=== PATIENT | male | born 1950 | race Caucasian/White ===

== ENCOUNTER 2017-06-10 07:01 | Day surgery (SDC) | payer OTHER ==
[~2017-06-10 07:01] MED LIST: ACETAMINOPHEN 1,000 MG/100 ML BTL IV ONE; CEFAZOLIN 2 Gram 2 GM/50 ML BAG IVPB ONE
[2017-06-10] MEDS ORDERED: SEVOFLURANE 250 ML INH ONE (07:02)
[2017-06-10] MEDS ORDERED: DEXAMETHASONE 4 MG/ML 1ML VIAL IVP ONE (07:02)
[2017-06-10] MEDS ORDERED: HYDROCODONE/APAP 7.5/325MG TABLET PO ONE (07:02)
[2017-06-10] MEDS ORDERED: BUPIVACAINE 0.5% W/EPI MPF 30 ML VIAL IVP ONE (07:02)
[2017-06-10] MEDS ORDERED: FENTANYL PF 100MCG/2ML VIAL IV ONE (07:02)
[2017-06-10] MEDS ORDERED: ROPIVACAINE HCL (NAROPIN) /PF 5MG/ML 20ML VIAL IV ONE (07:02)
[2017-06-10] MEDS ORDERED: ENOXAPARIN 40 MG/0.4 ML SYR SQ ONE (07:02)
[2017-06-10] MEDS ORDERED: MORPHINE SULFATE 5 MG/ML PFS IVP ONE (07:02)
[2017-06-10] MEDS ORDERED: LIDOCAINE 2% MDV (20MG/ML) 20ML VIAL IV ONE (07:02)
[2017-06-10] MEDS ORDERED: PROPOFOL 10 MG/ML VIAL IV ONE (07:02)
[2017-06-10] MEDS ORDERED: EPINEPHRINE 1 MG/ML AMPUL SQ ONE (07:02)
[2017-06-10] MEDS ORDERED: EPHEDRINE SULFATE 50 MG/ML ML IV ONE (07:02)
[2017-06-10] MEDS ORDERED: MIDAZOLAM HCL 2MG/2ML VIAL IV ONE (07:02)
[2017-06-10] MEDS ORDERED: MORPHINE SULFATE 4MG/ML PREFILLED SYRINGE IVP ONE (07:02)
[2017-06-10 07:12] LABS: BASO % 0.3 % (0-6); GRAN % 63.2 % (47-80); HEMATOCRIT 43.7 % (42.0-52.0); HEMOGLOBIN 15.1 gm/dl (14.0-18.0); LYMPH % 23.2 % (16-45); MEAN CELL VOLUME 88.3 fl (81-97); MEAN CORPUSCULAR HEMOGLOBIN 30.5 pg (27-33); MEAN CORPUSCULAR HGB CONC 34.6 g/dl (32-36); MEAN PLATELET VOLUME 9.2 fl (7.4-10.4); MONO % 8.3 % (0-9); PLATELET COUNT 290 K/uL (130-400); RED BLOOD COUNT 4.95 M/uL (4.40-5.70); RED CELL DISTRIBUTION WIDTH 13.7 % (11.5-14.5); WHITE BLOOD COUNT W/O DIFF 8.8 K/uL (4.2-12.2)
[2017-06-10 07:25] LABS: BLOOD UREA NITROGEN 20 mg/dL (8-23); CREATININE 1.1 mg/dL (0.7-1.2); EST GLOMERULAR FILTRATION RATE > 60 mL/min; GLUCOSE,RANDOM 106 mg/dL (74-109)
--- NOTE | 2017-06-11 05:35 | Operative Note ---
DATE: 06/10/2017. PREOPERATIVE DIAGNOSIS: TEAR OF THE ROTATOR CUFF ON THE LEFT. POSTOPERATIVE DIAGNOSES: 1. 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 2. SUPERIOR AND ANTERIOR GLENOHUMERAL LABRAL TEAR WITH SEVERE SHOULDER SYNOVITIS. 3. PROFOUND LEFT SHOULDER EXTERNAL IMPINGEMENT. 4. ADVANCED ARTHROSIS, LEFT DISTAL CLAVICLE. PROCEDURES: 1. OPEN REPAIR OF A CHRONICALLY TORN LEFT ROTATOR CUFF TEAR. 2. LEFT SHOULDER ARTHROSCOPY WITH INTRA-ARTICULAR DEBRIDEMENT. 3. LEFT SHOULDER OPEN ACROMIOPLASTY, CORACOACROMIAL LIGAMENT RESECTION, AND SUBACROMIAL BURSECTOMY. 4. LEFT SHOULDER DISTAL CLAVICLE RESECTION. STAFF SURGEON: Armando Ragland M.D. ANESTHESIA: General. PREPARATION: ChloraPrep. INDIVIDUAL CONSIDERATIONS: None. DESCRIPTION OF PROCEDURE: The patient was taken to the operating room and placed supine on the operating table. He had a successful induction of a general anesthetic. He was then placed in a semi-seated beach chair position, and his left arm and shoulder were prepped and draped in the usual fashion. The patient had posterior portal identified for arthroscopy. The skin was infiltrated with 0.5% Marcaine with epinephrine prior. An 18-gauge spinal needle was placed in the joint, and the joint was inflated with normal saline. A stab wound was made, a blunt-tipped trocar for the scope was placed in the joint, and the joint was inflated with normal saline. The patient had a frayed long head of the biceps tendon. An anterior accessory portal was then made just inferior to the intact long head of the biceps tendon in a retrograde fashion with a Wissinger cristian, and the joint was irrigated out. The patient had obviously a large tear of the rotator cuff and fraying of the labrum from I would say the 10 o'clock to almost 4 o'clock position. There was quite a bit of synovitis, and this was debrided. He obviously had a large tear of his supraspinatus extending into his infraspinatus tendon. The subscapularis was intact. Teres minor was intact. No loose bodies were seen in the inferior pouch. I checked the cartilage and it looked good. After irrigation, the arthroscopy portals were closed with zofia. The patient had an anterior approach to the subacromial space and distal clavicle. The skin was again infiltrated with 0.5% Marcaine with epinephrine prior. Sharp dissection was carried down through the skin and subcutaneous tissue. Small veins were coagulated with a Bovie. An anterior deltoid interval was developed. Care was taken not to split the deltoid more than about 4.0 cm distal to the anterior tip of the acromion to prevent injury to the axillary nerve. Once in the subacromial space, there was obviously a large mane of fluid consistent with a tear. The deltoid was then taken subperiosteally off the anterior aspect of the acromion, over the top of the intact coracoacromial ligament, and off the anterior aspect of the highly degenerated distal clavicle. The coracoacromial ligament was resected with a Bovie. The distal clavicle was resected with an oscillating saw. The patient had a downsloping acromion. An anterior acromioplasty was performed, taking about 7.0 or 8.0 mm, tapering until it was posteromedial to include the spurs of the acromioclavicular joint. The undersurface was then smoothed with a rasp. A very thick bursa was debrided out; in some areas it was about 5.0 mm thick. I now had a good look at the rotator cuff. Basically the supraspinatus and infraspinatus were completely torn off. The subscapularis was intact, and most of the teres minor was intact. I was able to mobilize I would say all of the infraspinatus and a portion of the supraspinatus and freshened it up. However, I was not able to get it completely to the tuberosity without abducting the arm maybe 25 to 30 degrees, and I accepted that. I went ahead and used the bur to freshen up the tuberosity. I placed multiple retention sutures into the end of the freshened tendon and brought it into the area of the tuberosity through holes in the bone, going directly through the holes in the tuberosity and suturing distally. If I held the arm between 20 and 30 degrees, the tendon still had good contact. At this point I went ahead and irrigated the wound out completely. Hemostasis was obtained with a Bovie. The deltoid was reattached to the remaining acromion with multiple interrupted #2 Vicryl going directly through the bony acromion. The periosteal cuff of the distal clavicle was closed with a running #2 Vicryl. The anterior deltoid interval was closed with running #1 Vicryl. Subcutaneous was closed with #2-0+ Vicryl. The skin was closed with zofia. A total of 15 mL of 0.5% Marcaine with epinephrine along with 5.0 mg of morphine was injected into the subacromial space. A sterile bulky compressive Aquacel type dressing and an abducting UltraSling were applied. The patient tolerated the procedures well, and needle and sponge counts were correct. Estimated blood loss was minimal, and he was taken back Recovery in good condition. There were no complications. MARCELO
== END 2017-06-10 12:05 | disposition home or self-care (01) ==
LOC: SUR 07:01
PROVIDERS: ATTEND Orthopaedic Surgery
DX: M75.102 Unspecified rotator cuff tear or rupture of left shoulder, not specified as traumatic (principal); S43.432A Superior glenoid labrum lesion of left shoulder, initial encounter; M75.42 Impingement syndrome of left shoulder; M19.019 Primary osteoarthritis, unspecified shoulder; I10 Essential (primary) hypertension
CPT/HCPCS: 23412; 23130; 23415; 29823; 01610; 85025; 80048; J3010; J0690; J2270; J2795; J2274; J0171; J1650